=== PATIENT | female | born 1985 | race Caucasian/White ===

== ENCOUNTER → 2019-09-02 | Outpatient (CLI) | payer OTHER | LOC: M LAB 13:36 | PROVIDERS: ATTEND Obstetrics & Gynecology Obstetrics | DX: O03.9 Complete or unspecified spontaneous abortion without complication (principal) ==

== ENCOUNTER 2019-09-26 16:18 | Emergency (ER) | payer OTHER ==
[~2019-09-26] VITALS: Ht 172.7 cm; Wt 66.4 kg
[2019-09-26 16:18] VITALS: BP 119/69
[2019-09-26] MEDS ORDERED: MULTCAP PO (16:22)
--- NOTE | 2019-09-26 16:58 | REP ---
Four views left fourth digit: 09/26/2019. Indication: Left foot trauma. Comparison: None. Findings: There is no acute fracture, subluxation or dislocation. Soft tissue edema is noted. Joint spaces are unremarkable. No erosive osseous lesions are present. Impression: No acute fracture. Electronically Signed by Raul Ndiaye DO 09/26/2019 04:50 P
[2019-09-26] MEDS ORDERED: NAPROXEN 250 MG TAB PO ONE (17:00)
[2019-09-26] MEDS ORDERED: NAPR-837 PO (17:10)
== END 2019-09-26 17:23 | disposition home or self-care (01) ==
LOC: M ED 16:18
DX: S90.122A Contusion of left lesser toe(s) without damage to nail, initial encounter (principal); W22.01XA Walked into wall, initial encounter; Y92.9 Unspecified place or not applicable; Y99.8 Other external cause status; Z88.0 Allergy status to penicillin

== ENCOUNTER → 2019-12-04 | Outpatient (CLI) | payer OTHER ==
[~2019-12-04] MED LIST: MULTCAP PO; NAPR-837 PO
--- NOTE | 2019-12-05 11:24 | REP ---
Clinical: Dating and viability. Technique: Transabdominal first trimester obstetrical ultrasound with color Doppler evaluation. Findings: Ultrasound examination demonstrates a single live early intrauterine . CRL of 4.4 cm corresponds to 11 weeks 1 day gestational age with estimated date of delivery 06/23/2020. heart rate equals 170 beats per minute. No gross abnormalities are identified. Impression: Single live early intrauterine at 11 weeks 1 day gestational age. Complete anatomical assessment should be performed at 19-20 weeks. Electronically Signed by Preston Nunez MD 12/05/2019 06:12 A
== END ==
LOC: M RAD 14:25
PROVIDERS: ATTEND Midwife
DX: Z34.81 Encounter for supervision of other normal pregnancy, first trimester (principal); Z36.87 Encounter for antenatal screening for uncertain dates; Z3A.11 11 weeks gestation of pregnancy

== ENCOUNTER → 2020-01-29 | Outpatient (CLI) | payer OTHER ==
--- NOTE | 2020-01-29 12:07 | REP ---
Obstetric sonography: History: Supervision of for anatomy. Findings: Scanning through the gravid uterus demonstrates a viable single intrauterine gestation in a cephalic lie. motion is observed and heart rate is recorded at 147 beats per minute. An anterior grade 1 placenta is seen without evidence of previa or abruption. Amniotic fluid is subjectively normal. Closed cervical length is 3.3 cm. No extrauterine abnormality is observed. There has been appropriate interval growth. No anomalies seen. The following anatomic structures are identified and felt to be sonographically unremarkable: cranium, choroid plexus, cavum, cerebellum and posterior fossa, nuchal fold, face and profile, four-chamber heart with left and right ventricular outflow tract views, diaphragm, left-sided stomach, abdominal wall cord insertion, three-vessel cord, kidneys and bladder, spine, upper and lower extremities. Biometry chart: BPD 4.5 cm = 19 weeks 4 days Head circumference 16.6 cm = 19 weeks 2 days Abdominal circumference 14.1 cm = 19 weeks 3 days Femur length 3.0 cm = 19 weeks 2 days Humeral length 2.9 cm = 19 weeks 3 days HC/AC ratio normal 1.19. Cephalic index normal 0.75. Estimated weight 289 grams, 0 pounds 10 ounces, 52nd percentile for 19 weeks 2 days. Impression: Viable single intrauterine gestation at 19 weeks 2 days by today's composite sonographic criteria. DIPTI by today's sonography June 22, 2020. anatomic survey is felt to be complete.
== END ==
LOC: M WHC 09:08
PROVIDERS: ATTEND Advanced Practice Midwife
DX: O34.211 Maternal care for low transverse scar from previous cesarean delivery (principal); Z3A.19 19 weeks gestation of pregnancy

== ENCOUNTER → 2020-05-01 | Outpatient (REF) | payer OTHER ==
[2020-05-01 17:31] LABS: HEMATOCRIT 36.5 % (36.0-47.0); HEMOGLOBIN 12.3 g/dl (12.0-15.5); MEAN CORPUSCULAR HEMOGLOBIN 33.2 pg (27.0-33.0); MEAN CORPUSCULAR HGB CONC 33.7 g/dl (32.0-36.5); MEAN CORPUSCULAR VOLUME 98.4 fl (80.0-96.0); PLATELET COUNT, AUTOMATED 190 10^3/uL (150-450); RED BLOOD COUNT 3.71 10^6/uL (4.00-5.40); WHITE BLOOD COUNT 9.9 10^3/uL (4.0-10.0)
[2020-05-04 11:20] LABS: HEPATITIS C VIRUS ABY INDEX 0.2 INDEX (<0.8); HIV 1&2 SCREEN CENTAUR NEGATIVE (NEGATIVE)
== END ==
LOC: M PLALAB 14:46
PROVIDERS: ATTEND Specialist
DX: Z34.83 Encounter for supervision of other normal pregnancy, third trimester (principal)
CPT/HCPCS: 36415; 85027; 86762; 86780; 86803; 86850; 86870; 86900; 86901; 87086; 87340; 87389; G0463; J2790

== ENCOUNTER → 2020-05-19 | Outpatient (REF) | payer OTHER | LOC: M SFHCWAGY 10:08 | PROVIDERS: ATTEND Advanced Practice Midwife | DX: Z36.84 Encounter for antenatal screening for fetal lung maturity (principal); O34.211 Maternal care for low transverse scar from previous cesarean delivery; Z3A.00 Weeks of gestation of pregnancy not specified | CPT/HCPCS: 87081; G0463 ==

== ENCOUNTER → 2020-05-26 | Outpatient (REF) | payer OTHER | LOC: M PLALAB 09:39 | PROVIDERS: ATTEND Advanced Practice Midwife | DX: O34.211 Maternal care for low transverse scar from previous cesarean delivery (principal) ==

== ENCOUNTER → 2020-06-29 | Outpatient (CLI) | payer OTHER | LOC: M LABSMTC 12:17 | PROVIDERS: ATTEND Advanced Practice Midwife | DX: Z20.828 Contact with and (suspected) exposure to other viral communicable diseases (principal); Z11.59 Encounter for screening for other viral diseases | CPT/HCPCS: C9803; U0002 ==

== ENCOUNTER 2020-06-30 08:20 | Inpatient (IN) | payer OTHER ==
[2020-06-30] MEDS ORDERED: OXYTOCIN 30 UNITS IN 0.9% NaCl 500ML IV BAG (J2590) ONE (09:54)
[2020-06-30] MEDS ORDERED: FENTANYL 2MCG/ML ROPIVACAINE 0.2% IN 0.9% NACL 100ML IVBAG ONE (16:33)
[2020-07-01] MEDS ORDERED: FENTANYL 2MCG/ML ROPIVACAINE 0.2% IN 0.9% NACL 100ML IVBAG ONE (00:59)
[2020-07-01] MEDS ORDERED: IBUPROFEN 800 MG TAB ONE (08:51)
[2020-07-01] MEDS ORDERED: ACETAMINOPHEN 500 MG TAB ONE (11:44)
[2020-07-01] MEDS ORDERED: DOCUSATE SODIUM 100 MG CAP ONE (20:55)
[2020-07-02] MEDS ORDERED: IBUPROFEN 800 MG TAB ONE (08:42)
[2020-07-02] MEDS ORDERED: BOOSTRIX/ADACEL VACCINE (DIPHTH/PERTUSS/ACELL/TETANUS) 0.5ML SYR ONE (08:42)
--- NOTE | 2020-08-31 13:21 | HPE ---
DATE OF ADMISSION: July 04, 2020 REASON FOR ADMISSION: Induction of labor. HISTORY OF PRESENT ILLNESS: This patient is a 35-year-old, 2, para 1, who presents at 41 and 4/7 weeks estimated gestational age for induction of labor. Her course has been unremarkable. She initiated care in the first trimester that has been appropriate throughout. PAST MEDICAL HISTORY: None. PAST SURGICAL HISTORY: * section. * Right ankle surgery. MEDICATIONS: vitamins. ALLERGIES: THE PATIENT IS ALLERGIC TO PENICILLIN, CHILDHOOD ALLERGY. SOCIAL HISTORY: She denies any alcohol, tobacco, or drug use during her . OBSTETRICAL HISTORY: She has had one section for breech presentation. PHYSICAL EXAMINATION: VITAL SIGNS: Her vital signs are stable. She is afebrile. She has a Category I heart tracing. GENERAL: Her general appearance is well-appearing, in no acute distress. LUNGS: Clear to auscultation bilaterally. CARDIOVASCULAR: Regular rate and rhythm. ABDOMEN: Gravid and nontender. EFW 3400 grams. CERVICAL EXAM: She is 1 cm dilated, 25% effaced. -3 station. ASSESSMENT: * This patient is a 35-year-old, 2, para 1, at 41 and 4/7 weeks estimated gestational age. * Reassuring status. * History of prior section. PLAN: * Admit to labor and delivery, CBC, RPR, type and screen. * The patient has been thoroughly counseled in regards to the mode of delivery. I discussed a trial of labor after section versus elective repeat section. I have discussed risks, as well as benefits, and after consultation, the patient desires to proceed with induction of labor for a trial of labor after section. She has been also verbally consented for emergency surgery, blood products, anesthesia, and desires to proceed with admission. * We will initiate her induction of labor with Pitocin. WALKER
--- NOTE | 2020-09-03 15:51 | DN ---
DATE OF DELIVERY: 07/01/2020 TIME OF : 0301 GENDER: Female APGARS: 5, 7, 9 LACERATIONS: Second-degree midline laceration. ANESTHESIA: Epidural. ESTIMATED BLOOD LOSS: 300 mL. COUNTS: Five laparotomy sponges counted prior to and at delivery. Three sharps removed from the delivery field. DESCRIPTION OF DELIVERY: This patient is a 35-year-old 2, now para 2, who had a vaginal after section of a live born female . Apgars 5, 7, and 9. Weight was 3640 grams or 8 pounds 0 ounces. Head was delivered followed by shoulders and corpus. Cord was clamped x3. was taken over to the warmer. Cord blood and gases were obtained. Placenta was drained and delivered grossly intact. A premixed bag of 500 mL of normal saline with 30 units of Pitocin was then bolused along with uterine massage. The uterus was firm. On inspection, there was a second-degree midline laceration, which was repaired with 3-0 Vicryl Rapide. On re-inspection, the cervix, vagina, and perineum were grossly intact and hemostatic. Mom and baby in recovery in stable condition. Mom decided to name her daughter WALKER
[2020-09-06 14:36] LABS: HEMATOCRIT 38.2 % (36.0-47.0); HEMOGLOBIN 13.1 g/dl (12.0-15.5); MEAN CORPUSCULAR HEMOGLOBIN 33.9 pg (27.0-33.0); MEAN CORPUSCULAR HGB CONC 34.3 g/dl (32.0-36.5); MEAN CORPUSCULAR VOLUME 98.7 fl (80.0-96.0); PLATELET COUNT, AUTOMATED 176 10^3/uL (150-450); RED BLOOD COUNT 3.87 10^6/uL (4.00-5.40); WHITE BLOOD COUNT 11.5 10^3/uL (4.0-10.0)
[2020-09-23 20:36] LABS: CORD GAS HCO3 A 21.2 MEQ/L; CORD GAS O2 SAT A 41.5 %; CORD GAS PCO2 A 70.6 mmHg; CORD GAS PH A 7.095 UNITS; CORD GAS PO2 A 23.9 mmHg; CORD GAS SBC A 15.5 MEQ/L; CORD GAS TCO2 A 23.3 MEQ/L
[2020-09-23 20:40] LABS: CORD GAS ABE V -7.9; CORD GAS HCO3 V 22.3 MEQ/L; CORD GAS PH V 7.141 UNITS; CORD GAS PO2 V 10.4 mmHg; CORD GAS TCO2 V 24.4 MEQ/L
== END 2020-07-02 06:00 | disposition home or self-care (01) | DRG 807 ==
LOC: M OBS 08:20
PROVIDERS: ADMIT Obstetrics & Gynecology; ATTEND Obstetrics & Gynecology
PROC: 3E0234Z Introduction of Serum, Toxoid and Vaccine into Muscle, Percutaneous Approach (ICD-10-PCS; 2020-06-30)
PROC: 10E0XZZ Delivery of Products of Conception, External Approach (ICD-10-PCS; principal; 2020-07-01)
PROC: 0KQM0ZZ Repair Perineum Muscle, Open Approach (ICD-10-PCS; 2020-07-01)
DX: O34.211 Maternal care for low transverse scar from previous cesarean delivery (principal); Z37.0 Single live birth; Z3A.40 40 weeks gestation of pregnancy; O70.1 Second degree perineal laceration during delivery; O48.0 Post-term pregnancy; O09.523 Supervision of elderly multigravida, third trimester

== ENCOUNTER → 2021-09-24 | Outpatient (REF) | payer OTHER | LOC: M SFHCWAGY 13:36 | PROVIDERS: ATTEND Advanced Practice Midwife | DX: Z12.4 Encounter for screening for malignant neoplasm of cervix (principal); R87.610 Atypical squamous cells of undetermined significance on cytologic smear of cervix (ASC-US) | CPT/HCPCS: 87624; G0123; G0463 ==